=== PATIENT | female | born 1985 | race Caucasian/White ===

== ENCOUNTER → 2018-05-24 15:44 | Outpatient (CLI) | payer BC, SELFPAY ==
[2018-05-24 17:08] LABS: Free T3 3.2 pg/mL (2.18-3.98); T4 Free Direct 1.19 ng/dL (0.76-1.46); Thyroid Stim Hormone (TSH) 1.39 uIU/mL (0.358-3.74)
--- OUTSIDE RECORDS SUMMARY | 2018-07-29 15:20 | XMS RPT_ITS ---
:1985 Author Organization [facility] Care Team Providers Name Role Phone AALIYAH COPELAND, DR. MORRELL Attending Unavailable AALIYAH COPELAND, DR. MORRELL Primary Care Unavailable DR. PETROS FISCHER DO Attending Unavailable AALIYAH COPELAND, DR. MORRELL Primary Care Unavailable Mary Ashraf Attending Unavailable Mary Ashraf Referring Unavailable Mary Ashraf Primary Care Unavailable PROBLEMS PROBLEMS DATE TYPE CONDITION / CODE ATTENDING STATUS SOURCE 05/24/2018 Unknown E03.9 - Mary Ashraf Active [facility] Hypothyroidism, Community unspecified / Hospital E03.9(ICD-10) Repository 09/05/2017 Admitting Louann, AALIYAH COPELAND DR. Active [facility] Diagnosis unspecified / PETROS [facility] E03.9(ICD-10) Repository PROCEDURES PROCEDURES No Procedure Records FoundRESULTS RESULTS FREE T3 Collected: 05/24/2018 Status: F Source: [place] 3:49 PM [facility] REPOSITORY TYPE CODE TESTS RESULT OUT OF RANGE REFERENCE UNITS LAB [id number] 2.18-3.98 pg/mL Normal FREE T3 3.2 Performed By: #### L501.05440, L501.9520, L506.0400 #### [facility] [address] [place], [place], [address] THYROID STIM HORMONE Collected: 05/24/2018 Status: F Source: [place] (TSH) 3:49 PM [facility] REPOSITORY TYPE CODE TESTS RESULT OUT OF RANGE REFERENCE UNITS LAB [id number] 0.358-3.74 uIU/mL Normal TSH 1.39 Performed By: #### L501.96648, L501.9520, L506.0400 #### [facility] [address] [place], [place], [address] T4 FREE DIRECT Collected: 05/24/2018 Status: F Source: [place] 3:49 PM [facility] REPOSITORY TYPE CODE TESTS RESULT OUT OF RANGE REFERENCE UNITS LAB [id number] 0.76-1.46 ng/dL Normal T4 FREE 1.19 DIRECT Performed By: #### L501.16046, L501.9520, L506.0400 #### [facility] [address] [place], [address] TSH Collected: 04/04/2018 Status: F Source: [facility] 5:30 PM [facility] REPOSITORY TYPE CODE TESTS RESULT OUT OF RANGE REFERENCE UNITS LAB TSH(LOINC) 0.36-3.74 mcIU/mL High TSH 3.77 Performed By: #### TSH, LIPID, CMP, GFR #### [address] [address] LIPID Collected: 04/04/2018 Status: F Source: [facility] 5:30 PM [facility] REPOSITORY TYPE CODE TESTS RESULT OUT OF REFERENCE UNITS RANGE LAB CHOL(LOINC 0-200 mg/dL ) Cholesterol High 227 Result Comment: Cholesterol Reference Interval: Less than 200 Desirable 200-239 Borderline high risk 240 and above High risk LAB TRIG(LOINC) 0-150 mg/dL Triglycerides 133 Result Comment: Triglyceride Reference Interval: Less than 150 Normal 150-199 Borderline high risk 200-499 High risk 500 or higher Very high risk LAB HD(LOINC) 40-60 mg/dL HDL Cholesterol 48 LAB LDL(LOINC) 0-130 mg/dL LDL High Cholesterol 152 Performed By: #### TSH, LIPID, CMP, GFR #### [facility] [address] [place] [address] CMP Collected: 04/04/2018 Status: F Source: [facility] 5:30 PM [facility] REPOSITORY TYPE CODE TESTS RESULT OUT OF REFERENCE UNITS RANGE LAB GLU(LOINC) 70-105 mg/dL Glucose Level 92 LAB NA(LOINC) 136-145 mmol/L Sodium Level 140 LAB K(LOINC) 3.5-5.1 mmol/L Potassium Level 4.2 LAB CL(LOINC) 98-107 mmol/L Chloride 101 LAB CO2(LOINC) 22-29 mmol/L CO2 High 31 LAB EBAL(LOINC mEq/L ) Electrolyte Balance 8.0 LAB BUN(LOINC) 7-18 mg/dL BUN 18 LAB CRE(LOINC) 0.55-1.02 mg/dL Creatinine Lvl (s) 0.71 LAB BC(LOINC) 7-27 ratio BUN/Creatinine 25 Ratio LAB CA(LOINC) 8.4-10.2 mg/dL Calcium Lvl 9.5 LAB PROT(LOINC 6.4-8.2 G/dL ) Total Protein 8.0 LAB ALB(LOINC) 3.5-5.0 G/dL Albumin Level 4.5 LAB GLB(LOINC) G/dL Globulin 3.5 LAB AG(LOINC) 1.1-2.5 ratio A/G Ratio 1.3 LAB BILT(LOINC 0.2-1.0 mg/dL ) Bili Total 0.4 LAB AP(LOINC) 40-135 U/L Alk Phos 65 LAB AST(LOINC) 10-40 U/L AST/SGOT 23 LAB ALT(LOINC) 10-35 U/L ALT/SGPT High 38 Performed By: #### TSH, LIPID, CMP, GFR #### [place] [address] .GFR Collected: 04/04/2018 Status: F Source: [facility] 5:30 PM [facility] REPOSITORY TYPE CODE TESTS RESULT OUT OF REFERENCE UNITS RANGE LAB GFRAA(LOINC ml/min/1.73 ) sqm GFR 115 Polish Result Comment: GFR Population mean for , Non- Americans Ages 20-29 = 116 mL/min/1.73 sq.m. Ages 30-39 = 107 mL/min/1.73 sq.m. Ages 40-49 = 99 mL/min/1.73 sq.m. Ages 50-59 = 93 mL/min/1.73 sq.m. Ages 60-69 = 85 mL/min/1.73 sq.m. Ages 70+ = 75 mL/min/1.73 sq.m. Chronic Kidney Disease: Less than 60 mL/min/1.73 square meters End Stage Renal Disease: Less than 15 mL/min/1.73 square meters LAB GFRNO(LOINC) ml/min/1.73sqm GFR Non- 95 Result Comment: GFR Population mean for , Non- Americans Ages 20-29 = 116 mL/min/1.73 sq.m. Ages 30-39 = 107 mL/min/1.73 sq.m. Ages 40-49 = 99 mL/min/1.73 sq.m. Ages 50-59 = 93 mL/min/1.73 sq.m. Ages 60-69 = 85 mL/min/1.73 sq.m. Ages 70+ = 75 mL/min/1.73 sq.m. Chronic Kidney Disease: Less than 60 mL/min/1.73 square meters End Stage Renal Disease: Less than 15 mL/min/1.73 square meters Performed By: #### TSH, LIPID, CMP, GFR #### [address] [address] MALBR Collected: 04/04/2018 Status: F Source: [facility] 5:30 PM [facility] REPOSITORY TYPE CODE TESTS RESULT OUT OF REFERENCE UNITS RANGE LAB CRU(LOINC) mg/dL U Creatinine 157.0 LAB MRUR(LOINC mcg/dL ) U Microalb [address] LAB RMAL(LOINC 0.0-24.9 mcg/mg ) U Ratio High Alb/Cre 70.6 Performed By: #### MALBR #### [place] [address] TSH Collected: 09/05/2017 Status: F Source: [facility] 8:22 AM [facility] REPOSITORY TYPE CODE TESTS RESULT OUT OF RANGE REFERENCE UNITS LAB TSH(LOINC) 0.27-4.20 mcIU/mL TSH 3.65 Performed By: #### TSH #### [place] [address] [address] ALLERGIES ALLERGIES DATE TYPE / CODE NAME / CODE REACTION SEVERITY SOURCE 09/17/2016 Drug naproxen/F00 Hives Unknown [place] [facility] Allergy/4160 [id number]([facility] 31527(SNOMED RM) Repository CT) ENCOUNTERS ENCOUNTERS ADMIT/DISCHARGE ACCOUNT NUMBER ADMITTING ENCOUNTER LOCATION SOURCE CLASS 05/24/2018 [id number] Ambulatory [place] [facility] ding:LAB Repository 04/04/2018/04/04/20 [id number] Ambulatory BBuilding:OL [address] Repository 09/05/2017/09/10/19 [id number] Ambulatory [address] ding:[facility] Foundation Repository PAYERS PAYERS ENCOUNTER GUARANTOR PAYER SUBSCRIBER SOURCE 05/24/2018 Jarod De Jesus Primary Jarod De Jesus [place] [id number] Insurance:ANTHEMPolicy [place]burgDOB: [facility] Number: [id number] [facility] Tonya, [id number] [place]ository [place] [address]Fci: Date:[id number], [place] () [address]HO: 05/24/2018 [facility] Insurance:SELF PAY [facility] Number: Effective Repository Date:2018-05-24 04/04/2018 JAROD [place] Primary JAROD [place] [facility] THORNBURGDOB: Insurance:ANTHEM BLUE THORNBURGDOB: [facility] [place] [facility] [id number] Repository [place] Number: [address], [id number] [place], [place] [address]Zws: Date:2018-04-04 [id number]: [phone] () Name:[address] ()Tel: [phone], [place] [phone] () [address]CW: 09/05/2017 JAROD [place] Primary [facility]OD [place] [facility] [place]NBURGDOB: Insurance:ANTHEM BLUE THORNBURGDOB: [facility] CROSS COMMERCIALPolic [id number] Repository [place] Number: [address], [id number] RDSMITMICHELLE [facility] [address]Hue: Date:2017-09-05 [id number]: [phone] [phone] () Name:TITO ZAPATA (HP)Tel: [phone], [place] [phone] () [address]VD:
== END ==
PROVIDERS: Family Provider Family Medicine; PCP Family Medicine; Referring Provider Family Medicine; Visit Provider Family Medicine
DX: E03.9 Hypothyroidism, unspecified (principal)
CPT/HCPCS: 36415; 84439; 84443; 84481

== ENCOUNTER → 2018-11-25 | Outpatient (CLI) | payer BC, SELFPAY ==
[2016-09-17 17:51] VITALS: BMI 40.3
[2018-11-25 09:09] LABS: Absolute Lymphocyte Count 2.64 X10^3/uL (0.83-4.51); Absolute Neutrophil Count 2.9 X10^3/uL (2.0-7.7); Basophil# 0.05 X10^3/uL; Basophil% 0.8 % (0-1); Eosinophil# 0.35 X10^3/uL; Eosinophils% 5.3 % (0-5); Hematocrit 44.5 % (37-47); Hemoglobin 14.4 g/dL (12.0-15.0); Lymphocyte # 2.64 X10^3/ul (4.0); Lymphocyte % 39.8 % (19-41); Mean Corp Hgb Conc 32.4 g/dL (32-36); Mean Corpuscular Hgb 29.5 pg (27.0-32.0); Mean Corpuscular Volume 91.2 fL (81-99); Mean Platelet Vol. 9.8 fl (6.2-12.0); Monocyte# 0.64 X10^3/uL; Monocyte% 9.6 % (0-10); NRBC Flagged by Analyzer 0 % (0-5); Neutrophil # 2.94 X10^3/uL (2.7-7.7); Neutrophil % 44.2 % (47-70); Platelet Count 309 K/mm3 (150-450); RBC Distribution Width CV 13.3 % (11.6-14.6); RBC Distribution Width SD 44.6 fl (35.1-43.9); Red Blood Count 4.88 M/mm3 (4.2-5.4); White Blood Count 6.6 K/mm3 (4.4-11.0)
[2018-11-25 09:48] LABS: Anion Gap 7 (5-15); BUN 14 mg/dL (7-18); BUN/Creat Ratio 19.2 RATIO (10-20); Calcium,Total 9.2 mg/dL (8.5-10.1); Chloride 107 mmol/L (98-107); Creatinine, Serum 0.73 mg/dL (0.55-1.02); EST Glomerular Filtration Rate 97 mL/min (>60); Est Glom Filt Rate - Afr Amer 118 mL/min (>60); Free T3 3.2 pg/mL (2.18-3.98); Glucose 101 mg/dL (74-106); Sodium Level 142 mmol/L (136-145); T4 Free Direct 1.35 ng/dL (0.76-1.46); Thyroid Stim Hormone (TSH) 0.97 uIU/mL (0.358-3.74)
== END | disposition home or self-care (01) ==
LOC: LAB 08:40
PROVIDERS: Family Provider Family Medicine; PCP Family Medicine; Referring Provider Family Medicine; Visit Provider Family Medicine
DX: E03.9 Hypothyroidism, unspecified (principal); I10 Essential (primary) hypertension
CPT/HCPCS: 36415; 80048; 84439; 84443; 84481; 85025

== ENCOUNTER → 2020-05-31 08:56 | Outpatient (CLI) | payer OTHER, SELFPAY ==
[2016-09-17 17:51] VITALS: BMI 40.3
[2020-05-31 09:42] LABS: Absolute Lymphocyte Count 2.57 X10^3/uL (0.83-4.51); Absolute Neutrophil Count 3.2 X10^3/uL (2.0-7.7); Basophil# 0.07 X10^3/uL; Eosinophil# 0.32 X10^3/uL; Eosinophils% 4.7 % (0-5); Hematocrit 45.3 % (37-47); Hemoglobin 15.1 g/dL (12.0-15.0); Lymphocyte # 2.57 X10^3/ul (4.0); Lymphocyte % 38.1 % (19-41); Mean Corp Hgb Conc 33.3 g/dL (32-36); Mean Corpuscular Hgb 30.9 pg (27.0-32.0); Mean Corpuscular Volume 92.6 fL (81-99); Mean Platelet Vol. 9.5 fl (6.2-12.0); Monocyte# 0.59 X10^3/uL; Monocyte% 8.8 % (0-10); NRBC Flagged by Analyzer 0 % (0-5); Neutrophil # 3.17 X10^3/uL (2.7-7.7); Neutrophil % 47.1 % (47-70); Platelet Count 337 K/mm3 (150-450); RBC Distribution Width CV 13.1 % (11.6-14.6); RBC Distribution Width SD 44.7 fl (35.1-43.9); Red Blood Count 4.89 M/mm3 (4.2-5.4); White Blood Count 6.7 K/mm3 (4.4-11.0)
[2020-05-31 10:32] LABS: AST(SGOT) 27 U/L (15-37); Alanine Aminotransfer ALT/SGPT 53 U/L (13-56); Albumin, Serum 4.1 g/dL (3.2-5.0); Alkaline Phosphatase 64 U/L (45-117); Anion Gap 5 (5-15); BUN 17 mg/dL (7-18); BUN/Creat Ratio 22.5 RATIO (10-20); Calcium,Total 9.3 mg/dL (8.5-10.1); Chloride 106 mmol/L (98-107); Cholesterol 237 mg/dL (200); Creatinine, Serum 0.76 mg/dL (0.55-1.02); EST Glomerular Filtration Rate 92 mL/min (>60); Est Glom Filt Rate - Afr Amer 112 mL/min (>60); Glucose 96 mg/dL (74-106); High Density Lipoprotein 51 mg/dL; Protein, Total 8.1 g/dL (6.4-8.2); Sodium Level 139 mmol/L (136-145); Thyroid Stim Hormone (TSH) 3.24 uIU/mL (0.358-3.74); Triglycerides 104 mg/dL; Very Low Density Lipoprotein 21 mg/dL (5-40)
== END ==
PROVIDERS: PCP Family Medicine; Referring Provider Family Medicine; Visit Provider Family Medicine
DX: I10 Essential (primary) hypertension (principal); E03.9 Hypothyroidism, unspecified
CPT/HCPCS: 36415; 80053; 80061; 84443; 85025

== ENCOUNTER 2021-06-13 07:22 | Outpatient (CLI) | payer BC, SELFPAY ==
[2021-06-13 08:03] LABS: Absolute Lymphocyte Count 2.04 X10^3/uL (0.83-4.51); Absolute Neutrophil Count 3.3 X10^3/uL (2.0-7.7); Basophil# 0.05 X10^3/uL; Basophil% 0.8 % (0-1); Eosinophil# 0.28 X10^3/uL; Eosinophils% 4.6 % (0-5); Hemoglobin 14.7 g/dL (12.0-15.0); Lymphocyte # 2.04 X10^3/ul (0.83-4.51); Lymphocyte % 33.4 % (19-41); Mean Corp Hgb Conc 32.7 g/dL (32-36); Mean Corpuscular Hgb 30.2 pg (27.0-32.0); Mean Corpuscular Volume 92.4 fL (81-99); Mean Platelet Vol. 9.6 fl (6.2-12.0); Monocyte# 0.46 X10^3/uL; Monocyte% 7.5 % (0-10); NRBC Flagged by Analyzer 0 % (0-5); Neutrophil # 3.25 X10^3/uL (2.7-7.7); Neutrophil % 53.4 % (47-70); Platelet Count 328 K/mm3 (150-450); RBC Distribution Width SD 44.1 fl (35.1-43.9); Red Blood Count 4.87 M/mm3 (4.2-5.4); White Blood Count 6.1 K/mm3 (4.4-11.0)
[2021-06-13 08:26] LABS: ALB/GLOB Ratio 1.1 RATIO (0.9-2.4); AST(SGOT) 21 U/L (15-37); Alanine Aminotransfer ALT/SGPT 50 U/L (13-56); Albumin, Serum 3.9 g/dL (3.2-5.0); Alkaline Phosphatase 70 U/L (45-117); Anion Gap 4 (5-15); BUN 15 mg/dL (7-18); BUN/Creat Ratio 21.1 RATIO (10-20); Chloride 108 mmol/L (98-107); Cholesterol 215 mg/dL (200); Creatinine, Serum 0.71 mg/dL (0.55-1.02); EST Glomerular Filtration Rate 99 mL/min (>60); Est Glom Filt Rate - Afr Amer 119 mL/min (>60); Globulin 3.7 g/dL (2.2-4.2); Glucose 116 mg/dL (74-106); High Density Lipoprotein 49 mg/dL; Potassium 4.3 mmol/L (3.5-5.1); Protein, Total 7.6 g/dL (6.4-8.2); Sodium Level 139 mmol/L (136-145); Thyroid Stim Hormone (TSH) 1.71 uIU/mL (0.358-3.74); Triglycerides 119 mg/dL; Very Low Density Lipoprotein 24 mg/dL (5-40)
== END 2021-06-13 23:59 | disposition home or self-care (01) ==
PROVIDERS: PCP Family Medicine; Referring Provider Family Medicine; Visit Provider Family Medicine
DX: Z00.00 Encounter for general adult medical examination without abnormal findings (principal); E03.9 Hypothyroidism, unspecified; I10 Essential (primary) hypertension
CPT/HCPCS: 36415; 80053; 80061; 84443; 85025

== ENCOUNTER → 2023-02-18 | Outpatient (CLI) | payer BC, SELFPAY ==
[2023-02-18 16:11] LABS: Absolute Lymphocyte Count 2.85 X10^3/uL (0.83-4.51); Absolute Neutrophil Count 3.3 X10^3/uL (2.0-7.7); Basophil# 0.05 X10^3/uL; Basophil% 0.7 % (0-1); Eosinophils% 2.9 % (0-5); Hematocrit 40.4 % (37-47); Hemoglobin 12.7 g/dL (12.0-15.0); Lymphocyte # 2.85 X10^3/ul (0.83-4.51); Lymphocyte % 41.6 % (19-41); Mean Corp Hgb Conc 31.4 g/dL (32-36); Mean Corpuscular Hgb 29.5 pg (27.0-32.0); Mean Platelet Vol. 9.2 fl (6.2-12.0); Monocyte# 0.48 X10^3/uL; NRBC Flagged by Analyzer 0 % (0-5); Neutrophil # 3.26 X10^3/uL (2.7-7.7); Neutrophil % 47.7 % (47-70); Platelet Count 363 K/mm3 (150-450); RBC Distribution Width CV 13.3 % (11.6-14.6); RBC Distribution Width SD 45.6 fl (35.1-43.9); White Blood Count 6.9 K/mm3 (4.4-11.0)
[2023-02-18 16:58] LABS: ALB/GLOB Ratio 1.1 RATIO (0.9-2.4); AST(SGOT) 19 U/L (15-37); Alanine Aminotransfer ALT/SGPT 35 U/L (13-56); Alkaline Phosphatase 56 U/L (45-117); Anion Gap 7 (5-15); BUN 13 mg/dL (7-18); BUN/Creat Ratio 17.5 RATIO (10-20); Calcium,Total 9.2 mg/dL (8.5-10.1); Chloride 108 mmol/L (98-107); Creatinine, Serum 0.74 mg/dL (0.55-1.02); EST Glomerular Filtration Rate 93 mL/min (>60); Est Glom Filt Rate - Afr Amer 112 mL/min (>60); Globulin 3.7 g/dL (2.2-4.2); Glucose 99 mg/dL (74-106); Potassium 4.1 mmol/L (3.5-5.1); Protein, Total 7.7 g/dL (6.4-8.2); Sodium Level 142 mmol/L (136-145); T4 Free Direct 1.49 ng/dL (0.76-1.46); Thyroid Stim Hormone (TSH) 0.52 uIU/mL (0.358-3.74)
== END | disposition home or self-care (01) ==
LOC: LAB 15:47
PROVIDERS: PCP Family Medicine; Referring Provider Family Medicine; Visit Provider Family Medicine
DX: E03.9 Hypothyroidism, unspecified (principal); I10 Essential (primary) hypertension
CPT/HCPCS: 36415; 80053; 84439; 84443; 85025

== ENCOUNTER 2023-05-17 08:15 | Emergency (ER) | payer BC, SELFPAY ==
[2023-05-17 08:17] VITALS: BP 187/104; PULSE 105; RESP 18; TEMP 36.6; O2SAT 98; BMI 45.4
--- NOTE | 2023-05-17 08:41 | EDS_ITS ---
HPI HPI - Female History of Present Illness Chief Complaint: Vag Bleeding Informant: patient Pain Pain: Positive for Pelvic Pain Current Severity: Mild Maximum Severity: Mild Bleeding Issue: Positive for Vaginal bleeding and Passing clots Onset: Today Timing: Intermittent Current Severity: Heavy Maximum Severity: Heavy Associated Symptoms Associated Symptoms: Negative for Dysuria, Frequency or Urgency P: 0 Ab: 0 Narrative Narrative: 37-year-old female history of hypertension, prior brain aneurysm coiled, 2 back surgeries and hypothyroidism. States that she typically has heavier than normal menstrual periods she has been bleeding heavier since midnight. She has had 3 such episodes in the last month. No prior history of any BODY RECALL INSTRUCTOR surgeries. She has never been . Is only having intermittent mild cramping. No dysuria. No fever. 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 Prior similar symptoms: Yes Recent Illness/Hospitalization: No PFSH PFSH Medical History no medical history Home Medications levothyroxine 150 mcg tablet 150 mcg PO DAILY 09/17/16 [History Last Taken Unknown] Allergy/AdvReac Type Severity Reaction Status Date / Time doxycycline Allergy PALPITATION Verified 05/17/23 08:16 S naproxen [From Aleve] Allergy Hives Verified 05/17/23 08:16 Family History no significant family his Surgical History no surgical history Social History Smoking Status: Never smoker ROS ROS ED ROS Narrative Vaginal bleeding. Otherwise no recent illness. Review of Systems ROS Unobtainable: Denies due to encephalopathy Constitutional Constitutional ED: Denies chills or fever(s) Eyes Eyes: Denies blurry vision ENT ENT ED: Denies ear pain Cardiovascular Cardiovascular: Denies chest pain Respiratory/Chest Respiratory/Chest: Denies cough or dyspnea Gastrointestinal Gastrointestinal: Denies abdominal pain Genitourinary Genitourinary ED: Denies dysuria Musculoskeletal Musculoskeletal: Denies arthralgias Integumentary Denies abscess or Abrasions Neurologic Neurologic: Denies headache(s) Psychiatric Psychiatric: Denies anxiety or depression Endocrine Endocrinology: Denies heat intolerance Hematologic/Lymphatic Hematologic/Lymphatic: Denies easy bleeding, easy bruising or lymphadenopathy Allergic/Immunologic Allergic/Immunologic ED: Denies mouth swelling, tongue swelling or urticaria EXAM Physical Exam Narrative Exam Narrative: Appearing 37-year-old female. Vital signs are stable afebrile. Blood pressure is elevated 187/104. HEENT exam unremarkable. Neck nontender. Lungs clear equal and symmetrical bilaterally. Heart tachycardic rate about 105 no murmur. Abdomen soft, nontender nondistended normal bowel sounds no peritoneal signs. Moving all 4 extremities. Nontender no edema. She is awake and alert. Const Vital Signs: 05/17/23 08:17 Temperature 97.9 F Temperature Source Temporal Pulse Rate 105 H Respiratory Rate 18 Blood Pressure 187/104 H Blood Pressure Mean 131 Pulse Ox 98 Oxygen Delivery Method Room Air Positive well nourished and well developed; Negative for cachectic, contractures or unkempt General Appearance ED: well developed and NAD; Negative for unkempt, cachectic, contractures or pallor Nutritional Appearance: Negative for cachectic HEENT Reports moist mucous membranes Negative for trauma or tenderness Eyes PERRL and EOMs intact bilaterally General Eye ED: Negative for pale conjunctiva or scleral icterus Neck no lymphadenopathy, supple and no JVD General: Negative for other Thyroid: Negative for tender Lymph Lymphatic: Negative for other Chest Wall inspection of chest normal and palpation of chest normal Resp normal respiratory effort and clear to auscultation bilaterally Effort and Inspection: Negative for pain with movement Auscultation: Negative for rales, rhonchi or wheezes Cardio regular rhythm, S1 normal heart sound, no murmurs and no JVD; Negative for regular rate Rate: tachycardic Rhythm: Negative for abnormal rhythm GI normal to inspection, nondistended, normoactive bowel sounds, soft to palpation, non-tender, non-distended and no masses Auscultation: normoactive bowel sounds Palpation: Negative for tender, guarding or rigid Back/Spine no CVA tenderness General Back: Negative for CVA tenderness Extremity normal to inspection and full ROM General Extremety ED: Negative for edema or tenderness General Extremity: Negative for edema Neuro oriented x3 and CN's II-XII intact bilaterally Sensorium / Orientation: alert, oriented to person, oriented to place and oriented to time; Negative for confused, lethargic or stuporous Psych mental status grossly normal Appearance: Negative for unkempt Attitude: No agitated Speech: No other Mood & Affect: Negative for depressed, anxious or tearful Skin no rashes or lesions noted and no wounds General Skin Exam: Negative for jaundice or pallor Rashes: No rashes noted Trauma: Negative for other MDM MDM MDM Narrative Medical decision making narrative: 37-year-old female heavier than normal vaginal bleeding. G0, P0. No history of BODY RECALL INSTRUCTOR surgeries. Passing clots. Pelvic exam. Blood count. Serum test. Patient is doing well at 9:40 AM. Pelvic exam done with female nurse present in the room. There is a very small amount of blood in the vaginal vault. No active bleeding. No clots. No discharge. On bimanual exam she had no tenderness. No palpable masses. Somewhat limited exam due to body habitus. I discussed with the patient she has a new anemia with a hemoglobin 11.6. Her prior hemoglobin was 12.7 in about a year and 1/2 to 2 years ago was 14.7. I will speak to BUDGET ASSISTANT on-call Dr. Wero Villaseñor. To try to ensure close follow-up. Patient also stated just before the pelvic exam she was in the bathroom and really did not notice any bleeding at that time either. History & Record Review Discussion w/independent historian: Patient Additional record(s) reviewed:: Prior inpatient record, Prior outpatient record, Prior ED visit and Prior labs Lab Data Attestation: I reviewed the patient's lab results. Lab results narrative: CBC shows a white count of 7. H&H 11.6 and 35.5 mild anemia. Platelets 396. Serum test negative. Labs: Laboratory Results - last 24 hr 05/17/23 08:43 WBC 7.4 RBC 3.98 L Hgb 11.6 L Hct 35.5 L MCV 89.2 MCH 29.1 MCHC 32.7 RDW Std Deviation 43.8 RDW Coeff of Tracey 13.4 Plt Count 396 MPV 9.3 Serum , Qual NEGATIVE Discharge Plan Triage Chief Complaint: Vag Bleeding ED Provider: Otoniel Juarez Dx/Rx/DC Orders Clinical Impression: Anemia, Abnormal vaginal bleeding, History of hypertension Instructions: ED Dysfunctional Uterine Bleeding Prescriptions: No Action levothyroxine 150 MCG tablet 150 mcg PO DAILY Primary Care Provider: Mary Ashraf Referrals: Mary Ashraf MD [Primary Care Provider] - Judy Reyes MD [Med Staff - Active Staff] - As soon as possible Activity Restrictions/Additional Instructions: Fluids and rest. Tylenol and Motrin for any pain. Call and follow-up with Dr. Judy Reyes's office she is a local BUDGET ASSISTANT affiliated with the hospital. He needs further evaluation. They may have to do another blood count to make sure that your counts not getting worse. You are mildly anemic. Return to the emergency department if you are having much heavier vaginal bleeding with passage of clots. Disposition Disposition: Home, Self Care
[2023-05-17 09:00] LABS: Hematocrit 35.5 % (37-47); Hemoglobin 11.6 g/dL (12.0-15.0); Mean Corp Hgb Conc 32.7 g/dL (32-36); Mean Corpuscular Hgb 29.1 pg (27.0-32.0); Mean Corpuscular Volume 89.2 fL (81-99); Mean Platelet Vol. 9.3 fl (6.2-12.0); Platelet Count 396 K/mm3 (150-450); RBC Distribution Width CV 13.4 % (11.6-14.6); RBC Distribution Width SD 43.8 fl (35.1-43.9); Red Blood Count 3.98 M/mm3 (4.2-5.4); White Blood Count 7.4 K/mm3 (4.4-11.0)
[2023-05-17 09:20] LABS: Internal QC Validated? YES +Cl - CLEAR BKGD; Pregnancy, Serum, hCG Quali. NEGATIVE Negative
--- OUTSIDE RECORDS SUMMARY | 2023-05-17 10:28 | XMS RPT_ITS | CCD ---
Author Name Unknown Address [address] [place] [address] Organization [facility] Care Team Providers Care Bank Vault Clerk Name Role Phone RENEE COSTELLO Unavailable Unavailable RENEE COSTELLO Unavailable Unavailable RENEE COSTELLO Unavailable Unavailable RENEE COSTELLO Unavailable Unavailable Pcp, No Primary Care Provider Unavailabl e Renee Costello Primary Care Provider Mary Ashraf Primary Care Provider [phone] Allergies Allergy Classification Reported Allergen(s) Allergy Type Date of Onset Reaction(s) Facility (1 source) Naproxen Drug Allergy 10-27-2016 Hives [facility] Problems Problem Classification Problem Date Documented Da te Episodic/Chronic Thyroid disorders (2 sources) Hypothyroidism, unspecified; Translations: [Hypothyroidism, unspecified] Onset: 09-05-2017 Chronic Results Test Name Value Interpretation Reference Range Facil ity Encounters Encounter Date Encounter Type Care Provider Facility Start: 04-04-2018 End: 04-05-2018 Patient encounter procedure RENEE AALIYAH Facility: Start: 09-05-2017 End: 09-10-2017 Patient encounter procedure RENEE AALIYAH [facility] Start: 01-10-2008 End: 01-10-2008 Patient encounter procedure Malik Camarillo Work Phone: [facility] Start: 01-10-2008 Results Only Malik Parry Marquise Work Phone: [facility] Procedures Date Procedure Procedure Detail Performing Clinician Start: 01-10-2008 CONVERTED SURGICAL PATHOLOGY Malik Sohan [place] Work Phone: Plan of Treatment Date Care Activity Detail Author Start: 01-08-2020 Influenza vaccination INFLUENZA (#1) [facility] Start: 2014 HPV TESTING HPV TESTING [facility] Start: 2005 PAP TESTING PAP TESTING [facility] Start: 10-12-2003 Urine microalbumin profile DTAP,TDAP ,TD (1 - Tdap) [facility] Start: 2002 HEPATITIS C SCREENING HEPATITIS C SC JULIETH [facility] Start: 2002 HIV SCREENING HIV SCREENING [facility] Payers Date Payer Category Payer Unknown [id number] 2006 Unknown ANTHEM BLUE CARD PPO [id number] 2006-Present PPO [id number] 1984 Unknown [id number] 1984 Unknown [id number] Social History Date Type Detail Facility Tobacco smoking status NHIS Unknown if ev er smoked [facility] Sex Assigned At Not on file [facility] Summary Purpose Family History No Family History Records FoundNo Family History Records FoundNo Family History Records Found Advance Directives Documents on File Type Date Recorded Patient Financial Reporting Advisor Expl anation Advance Directive(s) 03/24/2017 10:55 AM Advance Directive(s) 09/21/2018 8:21 AM Procedure Findings Note HNO ID: [id number] Author: Alysia Up Service: ? 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 ESTIMATED BLOOD LOSS: 5 mls SPECIMENS: None COMPLICATIONS: None PRE-OP/PRE-PROCEDURE DIAGNOSIS: 2 years s/p coiling ruptured Acom aneurysm POST-OP/POST-PROCEDURE DIAGNOSIS: 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 SIGNATURE: Yuridia Up MD PATIENT NAME: Jarod Lehman DATE: September 21, 2018 TIME: 11:45 AM PAGER/CONTACT #: History of Past Illness Problem Noted Date Resolved Date 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 Additional Source Comments INFORMATION SOURCE (unrecogn ized section and content) DATE CREATED AUTHOR AUTHOR'S ORGANIZ ATION 10/02/2018 [facility] DATE CREATED AUTHOR AUTHOR'S ORGANIZ ATION 10/14/2018 [facility] Source Comments (unrecognize d section and content) In the event this informatio n is protected by the Federal Confidentiality of Alcohol and Drug Abuse Patient Records regulations: The Federal rules restrict any use of the information to criminally investigate or prosecute any alcohol or drug abuse patient.[facility] FOR RECORDS PERTAINING TO PATIENTS WHO ARE OR HAVE BEEN ENROLLED IN A CHEMICAL DEPENDENCY/SUBSTANCEABUSE PROGRAM, SOME INFORMATION MAY BE OMITTED. This clinical summary was aggregated from multiple sources. Caution should be exercised in using it in the provision of clinical care. This summary normalizes information from multiple sources, and as a consequence, information in this document may materially change the coding, format and clinical context of patient data. In addition, data may be omitted in some cases. CLINICAL DECISIONS SHOULD BE BASED ON THE PRIMARY CLINICAL RECORDS. [facility]. provides no warranty or guarantee of the accuracy or completeness of information in this document.
== END 2023-05-17 10:10 | disposition home or self-care (01) ==
PROVIDERS: Emergency Provider Emergency Medicine; PCP Family Medicine; Visit Provider Emergency Medicine
DX: D64.9 Anemia, unspecified (principal); I10 Essential (primary) hypertension; N93.9 Abnormal uterine and vaginal bleeding, unspecified; E03.9 Hypothyroidism, unspecified; Z79.899 Other long term (current) drug therapy
CPT/HCPCS: 84703; 85027; 99283; A4216

== ENCOUNTER → 2024-03-07 | Outpatient (CLI) | payer BC, SELFPAY ==
[2024-03-07 16:44] LABS: Absolute Lymphocyte Count 3.38 X10^3/uL (0.83-4.51); Absolute Neutrophil Count 4.1 X10^3/uL (2.0-7.7); Basophil# 0.06 X10^3/uL; Basophil% 0.7 % (0-1); Eosinophil# 0.27 X10^3/uL; Eosinophils% 3.2 % (0-5); Hematocrit 42.5 % (37-47); Hemoglobin 13.5 g/dL (12.0-15.0); Lymphocyte # 3.38 X10^3/ul (0.83-4.51); Lymphocyte % 39.5 % (19-41); Mean Corp Hgb Conc 31.8 g/dL (32-36); Mean Corpuscular Hgb 28.3 pg (27.0-32.0); Mean Corpuscular Volume 89.1 fL (81-99); Mean Platelet Vol. 9.7 fl (6.2-12.0); Monocyte# 0.73 X10^3/uL; Monocyte% 8.5 % (0-10); NRBC Flagged by Analyzer 0 % (0-5); Neutrophil # 4.08 X10^3/uL (2.7-7.7); Neutrophil % 47.6 % (47-70); Platelet Count 373 K/mm3 (150-450); RBC Distribution Width CV 14.8 % (11.6-14.6); RBC Distribution Width SD 48.6 fl (35.1-43.9); Red Blood Count 4.77 M/mm3 (4.2-5.4); White Blood Count 8.6 K/mm3 (4.4-11.0)
[2024-03-07 17:41] LABS: AST(SGOT) 31 U/L (15-37); Alanine Aminotransfer ALT/SGPT 49 U/L (13-56); Albumin, Serum 4.2 g/dL (3.2-5.0); Alkaline Phosphatase 81 U/L (45-117); Anion Gap 6 (5-15); BUN 27 mg/dL (7-18); BUN/Creat Ratio 32.8 RATIO (10-20); Chloride 108 mmol/L (98-107); Creatinine, Serum 0.82 mg/dL (0.55-1.02); EST Glomerular Filtration Rate 82 mL/min (>60); Est Glom Filt Rate - Afr Amer 99 mL/min (>60); Glucose 99 mg/dL (74-106); Protein, Total 8.2 g/dL (6.4-8.2); Sodium Level 139 mmol/L (136-145); T4 Free Direct 1.42 ng/dL (0.76-1.46)
== END | disposition home or self-care (01) ==
LOC: LAB 15:49
PROVIDERS: PCP Family Medicine; Referring Provider Family Medicine; Visit Provider Family Medicine
DX: E03.9 Hypothyroidism, unspecified (principal); I10 Essential (primary) hypertension
CPT/HCPCS: 36415; 80053; 84439; 84443; 85025

== ENCOUNTER → 2024-08-21 | Outpatient (CLI) | payer BC, SELFPAY ==
--- NOTE | 2024-08-21 16:51 | RAD_ITS ---
EXAM: Wrist minimum three views CLINICAL HISTORY: Extension injury to wrist COMPARISON: None available TECHNIQUE: Three views right wrist FINDINGS: Appearance of a small fracture of the lunate on the AP view. This could be further evaluated with cross-sectional imaging. Scapholunate distance appears within limits. No dislocation. There appears to be soft tissue swelling about the wrist greater on the ulnar side. RAD/Wrist min 3 Views IMPRESSION: Appearance of a small fracture of the lunate on the AP view. This could be furt her evaluated with cross-sectional imaging. Scapholunate distance appears within limits. Recommend orthopedic consult. No dislocation. Reading Location: [id number]
== END | disposition home or self-care (01) ==
LOC: MTRAD 16:50
PROVIDERS: PCP Family Medicine; Referring Provider Family Medicine; Visit Provider Family Medicine
DX: M25.531 Pain in right wrist (principal)
CPT/HCPCS: 73110

== ENCOUNTER → 2024-10-03 | Outpatient (CLI) | payer BC, SELFPAY ==
--- NOTE | 2024-10-03 15:51 | MRI_ITS ---
PROCEDURE: UPPER EXT JOINT ONLY(ROUTINE) 10/03/2024 REASON FOR EXAM: RIGHT WRIST DRUJ INSTABILITY, AND LUNATE FRACTURE TECHNIQUE: T1, T2, stir, MRI of the right wrist. Multiplanar and multisequence images were obtained without IV contrast administration. COMPARISON: COMPARISON : None FINDINGS: There is a 0.25 cm subcortical cyst or erosion in the distal lunate. There is normal marrow signal in the distal radius and ulna and in the carpal bones with no occult fracture. There is no evidence of tear in the triangular fibrocartilage. The joint spaces are maintained. The flexor and extensor tendons appear intact. The carpal tunnel and median nerve are normal in appearance. There is a trace amount of fluid in the distal radioulnar joint. There is no significant effusion at the radiocarpal articulation. MRI/Upper Ext Joint Only(Routine) IMPRESSION: There is a 0.25 cm subcortical cyst or erosion in the distal lunate. There is a trace amount of fluid in the distal radioulnar joint. Reading Location: [facility]
== END | disposition home or self-care (01) ==
PROVIDERS: PCP Family Medicine; Referring Provider Orthopaedic Surgery Sports Medicine; Visit Provider Orthopaedic Surgery Sports Medicine
DX: S62.121A Displaced fracture of lunate [semilunar], right wrist, initial encounter for closed fracture (principal); M25.531 Pain in right wrist
CPT/HCPCS: 73221